=== PATIENT | male | born 1945 | race Caucasian/White ===

== ENCOUNTER 2020-02-09 13:38 | Emergency (ER) | payer OTHER ==
[~2020-02-09] VITALS: Ht 182.9 cm; Wt 99.8 kg
[2020-02-09] MEDS ORDERED: KETOROLAC TROMETHAMINE 60 MG/2 ML VIAL IM ONE (14:00)
[2020-02-09] MEDS ORDERED: HYDROCODONE/APAP 7.5MG-325MG 1 EA TAB PO ONE (14:00)
--- OUTSIDE RECORDS SUMMARY | 2020-02-09 14:06 | XMS REPORT | Continuity of Care Document ---
Author Author [facility] t Organization [facility] Address [address] [place] [address] Phone Unavailable Care Team Providers Care Ship'S Surveyor Name Role Phone Merrill Robledo Attphys VISIT, [facility] MED_ASST Attphys Unavailable VISIT, [facility] NURSE Attphys Unavailable Payers Payer Name Policy Type Policy Number Effective Date Expiration Date S ource Problems Condition Name Condition Details Condition Category Status Onset Date Resolution Date Last Treatment Date Treating Clinician Comments Source ABHAY COATESK Active 08/05/2019 [facility] Diagnosis Active 2019-08-05 00:00:00 2019-10-21 12:31:00 M radames Sterling Hypertensive disorder, systemic arterial (disorder) Hypertensive disorder, systemic arterial (disorder) Active Problem [facility]06[facility]2020 [facility] Problem Active 2 21:13:03 Sarah Sterling Chronic low back pain (disorder) Chronic low back pain (disorder) Active Problem 02/06/2020 [facility] Problem Active 2020-02-06 21:13:03 Sarah Sterling Disease of urinary tract (disorder) Disease of urinary tract (disorder) Active Problem 02/06/2020 [facility] Problem Active 2020-02-06 21:13:03 Gina Sterling Peripheral vascular disease (disorder) Peripheral vascular disease (disorder) Active Problem 02/06/2020 [facility] Problem Active 2020-02-06 21:13:03 Heladio Sterling Sleep apnea (finding) Slee p apnea (finding) Active Problem 02/06/2020 [facility] Problem Active 2020-02-06 21:13:03 [facility] Ben[facility] prostatic hypertroph with outflow obstruction ( disorder) 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) Active Problem 02/06/2020 [facility] Problem Active 2020-02-06 21: 13:03 [facility] Malignant tumor of urinary bladder (disorder) Malignant tumor of urinary bladder (disorder) Active Problem 02/06/2020 [facility] Problem Active 2020-02-06 21:13:03 [facility] Allergies, Adverse Reactions, Alerts Allergy Name Allergy Type Status Severity Reaction(s) Onset Date Inacti ve Date Treating Clinician Comments Source No Known Allergies DA Active U 2019-11-05 00:00:00 [facility] No Known Allergies DA Active U 2015-04-27 00:00:00 [facility] No Known Medication Allergies No Known Medication Allergies Active [facility] Social History Social Habit Start Date Stop Date Quantity Comments Source Social History 2019-10-21 19:06:38 2019-10-21 19:06:38 [facility] Medications Ordered Medication Name Filled Medication Name Start Date Stop Da te Current Medication? Ordering Clinician Indication Dosage Frequency Signature (SIG) Comments Components Source fentaNYL (ANES) 2019-10-21 20:07:00 No Route: IV, Drug form: INJ, ONCE, Stop date: 10/21/19 15:07:00 CDT radames Sterling lidocaine (ANES) 2019-10-21 20:07:00 No Route: IV, Drug form: INJ, ONCE, Stop date: 10/21/19 15:07:00 CDT radames Sterling propofol (ANES) 2019-10-21 20:06:00 No Route: IV, Drug form: INJ, ONCE, Stop date: 10/21/19 15:06:00 CDT radames Sterling ondansetron (CRISTINAS) 2019-10-21 20:06:00 No Route: IV, Drug form: INJ, ONCE, Stop date: 10/21/19 15:06:00 CDT radames Sterling ePHEDrine (CRISTINAS) 2019-10-21 19:55:00 No Route: IV, Drug form: INJ, ONCE, Stop date: 10/21/19 14:55:00 CDT [facility] glycopyrrolate (ANES) 2019-10-21 19:45:00 No Route: IV, Drug form: INJ, ONCE, Stop date: 10/21/19 14:45:00 CDT [facility] famotidine (ANES) 2019-10-21 19:45:00 No Route: IV, Drug form: INJ, ONCE, Stop date: 10/21/19 14:45:00 CDT [facility] dexamethasone (ANES) 2019-10-21 19:40:00 No Route: IV, Drug form: INJ, ONCE, Stop date: 10/21/19 14:40:00 CDT [facility] midazolam (ANES) 2019-10-21 19:30:00 No Route: IV, Drug form: SOLN, ONCE, Stop date: 10/21/19 14:30:00 CDT [facility] ciprofloxacin ([facility] 2 mg 2019-10-21 19:11:00 No Route: IV, Drug form: INJ, Start date: 10/21/19 14:11:00 CDT, Stop date: 10/21/19 15:11:00 CDT [facility] gemcitabine 1 gm + empty container 1 ea + Sodium Chloride 0. 9% IV 50 mL 2019-10-21 19:00:00 No Notes: Same as: Deandre palacios [facility] Lactated Ringers Injection IV (ANES) 1000 mL 2019-10-21 18:58:00 No Route: IV, Total Volume: 1,000, Start date: 10/21/19 13:58:00 CDT, Stop date: 10/21/19 14:58:00 CDT [facility] Sulfamethoxazole 800 MG / Trimethoprim 160 MG Oral Tablet [B actrim] 2019-10-21 18:46:00 Yes 1 tab, PO, BID, X 3 day, # 6 tab, 0 Refill(s), Pharmacy: [facility] [address] [facility] Hyoscyamine Sulfate 0.125 MG Sublingual Tablet [Levsin] 2019-10-21 18:46:00 Yes 0.125 mg = 1 ta b, SL, Q4H, PRN Bladder Spasm, # 40 tab, 1 Refill(s), Pharmacy: [facility] [address] Sarah Sterling tramadol hydrochloride 50 MG Oral Tablet 2019-10-21 18:46:00 Yes 50 mg = 1 tab, PO, Q8H, PRN Pain, X 10 day, # 20 tab, 0 Refill(s), Pharmacy: [facility] [address] [place] [address] Asher Calcium Chloride 0.0014 MEQ/ML / Potassi um Chloride 0.004 MEQ/ML / Sodium Chloride 0.103 MEQ/ML / Sodium Lactate 0.028 MEQ/ML Injectable Solution 2019-10-21 18:13:00 No 1,000 mL, Rate: 75 ml/hr, Infuse over: 13.3 hr, Route: IV, Dosing Weight 100 kg, Total Volume: 1,000, Start date: 10/21/19 13:13:00 CDT, Duration: 30 day, Stop date: 11/20/19 13:12:00 CDT, 2.27, m2 Sarah Asher clopidogrel 75 mg oral tablet 2019-07-29 15:23:00 Yes 75 mg = 1 tab, PO, Daily, # 90 tab, 0 Refill(s) Lyly Montero METOPROLOL ER 25MG TAB 2019-07-29 15:23:00 Yes METOPROLOL ER 25MG TAB, 1 tab, PO, Daily, Refill(s) 0 Gina Sterling AMLODIPINE 10MG TAB 2019-07-29 15:23:00 Yes AMLODIPINE 10MG TAB, 1 tab, PO, Daily, Refill(s) 0 Sarah miller tamsulosin 0.4 mg oral capsule 2019-07-29 15:23:00 Yes 0.4 mg = 1 cap, PO, Daily, # 30 cap, 0 Refill(s) Va morifazal Sterling Vital Signs Vital Name Observation Time Observation Value Comments Source Respitory Rate 2019-10-21 21:30:00 [facility] [place] Systolic (mm Hg) 2019-10-21 21:30:00 Hel[facility]io [facility] [place] Diastolic (mm Hg) 2019-10-21 21:30:00 [facility] [place] Respitory Rate 2019-10-21 20:45:00 [facility] [place] Systolic (mm Hg) 2019-10-21 20:45:00 Heladio [facility] [place] Diastolic (mm Hg) 2019-10-21 20:45:00 [facility] Respitory Rate 2019-10-21 20:30:00 [facility] [place] Systolic (mm Hg) 2019-10-21 20:30:00 Heladiochandan nicholsonl [place] Diastolic (mm Hg) 2019-10-21 20:30:00 [facility] [place] Heart Rate 2019-10-21 20:00:00 [facility] Heart Rate 2019-10-21 19:52:00 [facility] Heart Rate 2019-10-21 18:15:00 [facility] [place] Height 2019-10-14 21:11:00 182.88 cm [facility] [place] Weight 2019-10-14 21:11:00 [facility] [place] BMI Calculated 2019-10-14 21:11:00 [facility] Height 2019-08-05 18:29:00 182.88 cm [facility] Weight 2019-08-05 18:29:00 [facility] [place] BMI Calculated 2019-08-05 18:29:00 [facility] [place] Height 2019-07-29 15:16:00 182.88 cm [facility] Weight 2019-07-29 15:16:00 [facility] BMI Calculated 2019-07-29 15:16:00 [facility] [place] Procedures Procedure Date / Time Performed Performing Clinician Sour e Cystourethroscopy (separate procedure) 2019-08-05 20:20:00 [facility] Angioplasty 2015-05-27 00:00:00 [facility] Cholecystectomy [facility] Encounters Start Date/Time End Date/Time [facility] Source 2020-02-04 08:30:00 2020-02-04 08:30:00 Outpatient Victorino Robledo [facility] [id number] 2019-10-26 08:30:00 2019-10-26 23:59:59 Outpatient VISIT, NE D_ASST [facility] [id number] 2019-10-23 10:49:54 2019-10-24 23:59:59 Outpatient [facility] [id number] 2019-10-21 12:31:00 2019-10-21 16:21:00 Outpatient Victorino RobledoSE [facility] [id number] 2019-10-21 12:31:00 2019-10-21 12:31:00 Outpatient [facility] [facility] 2019-10-13 09:30:00 2019-10-13 23:59:59 Outpatient Victorino Robledo [facility] [id number] 2019-08-10 13:45:00 2019-08-10 13:45:00 Outpatient VISIT, GEORGE MONTALVO [facility] [id number] 2019-08-05 14:00:00 2019-08-05 23:59:59 Outpatient Victorino Robledo [facility] [id number] 2019-07-29 09:30:00 2019-07-29 23:59:59 Outpatient Victorino Robledo [facility] [id number] Results Test Description Test Time Test Comments Results Result Comments Source Novel Coronavirus 2018 [facility] 2019-11-06 16:28:00 Test Item Novel Coronavirus 2018 Inhouse (test code = COVNONPUI) Negative Negative Testing Criteria: Preprocedure ScreeningNovel Coronavirus 2018 [facility] 2019-11-06 16:28:00* Test Item Value Reference Range Interpretation Comments Novel Coronavirus 2018 Inhouse (test code = COVNONPUI) Negative Negative Testing Criteria: Preprocedure ScreeningBASIC METABOLIC [id number] 13:32:00* Test Item Value Reference Range Interpretation Comments SODIUM (test code = NA) 143 mmol/L 136-145 N POTASSIUM (test code = K) 4.4 mmol/L 3.5-5.1 N CHLORIDE (test code = CL) 111.0 mmol/L 98-107 H CARBON DIOXIDE (test code = CO2) 25.0 mmol/L 21-32 N ANION GAP (test code = GAP) 11.4 10-20 N GLUCOSE (test code = GLU) 98 mg/dL 74-106 N BLOOD UREA NITROGEN (test code = BUN) 20 mg/dL 7-18 H GLOMERULAR FILTRATION RATE (test code = GFR) > 60 mL/min >=60 Estimated GFR by using Modified MDRD formula.Chronic kidney disease is defined as either kidney damageor GFR <60 mL/min/1.73 m2 for >3 months. CREATININE (test code = CREAT) 0.90 mg/dL 0.7-1.3 N BUN/CREATININE RATIO (test code = BUN/CREA) 21.5 10-20 H CALCIUM (test code = CA) 9.2 mg/dL 8.5-10.1 N BASIC METABOLIC [id number] 13:21:00* Test Item Value Reference Range Interpretation Comments SODIUM (test code = NA) 143 mmol/L 136-145 N POTASSIUM (test code = K) 4.4 mmol/L 3.5-5.1 N CHLORIDE (test code = CL) 111.0 mmol/L 98-107 H CARBON DIOXIDE (test code = CO2) mmol/L 21-32 ANION GAP (test code = GAP) 10-20 GLUCOSE (test code = GLU) mg/dL 74-106 BLOOD UREA NITROGEN (test code = BUN) mg/dL 7-18 GLOMERULAR FILTRATION RATE (test code = GFR) mL/min >=60 CREATININE (test code = CREAT) mg/dL 0.7-1.3 BUN/CREATININE RATIO (test code = BUN/CREA) 10-20 CALCIUM (test code = CA) mg/dL 8.5-10.1 PROTHROMBIN [id number] 12:50:00* Test Item Value Reference Range Interpretation Comments PROTHROMBIN TIME PATIENT (test code = PTP) 11.1 seconds 9.0-14.0 N INTERNATIONAL NORMAL RATIO (test code = INR) 0.9 0.8-1.2 N The therapeutic range for oral anticoagulant therapy formost indications is an international normalized ratio (INR)of between 2.0 and 3.0. The recommended therapeutic INRrange for various clinical situations is listed below: Clinical Situation INR range Pulmonary e mbolism treatment (2.0-3.0)Venous thrombosis treatmentVenous thrombosis prophylaxis (high risk surgery)Prevention of systemic embolism from: Acute myocardial infarction Valvular heart disease Atrial fibrillation Mechanical prosthetic heart valves (2.5-3.5) IS PATIENT ON ANTICOAGULANTS? NTHROMBOPLASTIN TIME [id number] 12:50:00* Test Item Value Reference Range Interpretation Comments THROMBOPLASTIN TIME PARTIAL (test code = PTT) 32.9 seconds 23.0-37. 0 N IS PATIENT ON ANTICOAGULANTS? NCBC W/AUTO [id number] 12:46:00* Test Item Value Reference Range Interpretation Comments WHITE BLOOD CELL (test code = WBC) 8.3 K/mm3 4.5-12.5 N RED BLOOD CELL (test code = RBC) 4.29 mill/mm3 4.0-5.8 N HEMOGLOBIN (test code = HGB) 14.0 gram/dL 13.0-17.5 N HEMATOCRIT (test code = HCT) 41.1 % 42.0-52.0 L MEAN CELL VOLUME (test code = MCV) 95.8 fL 80-98 N MEAN CELL HGB (test code = MCH) 32.6 picogram 27.0-33.0 N MEAN CELL HGB CONCETRATION (test code = MCHC) 34.1 gram/dL 33.0-36. 0 N RED CELL DISTRIBUTION WIDTH (test code = RDW) 12.8 % 11.6-16. 2 N RED CELL DISTRIBUTION WIDTH SD (test code = RDW-SD) 43.8 fL 37 .0-51.0 N PLATELET COUNT (test code = PLT) 256 K/mm3 150-450 N MEAN PLATELET VOLUME (test code = MPV) 12.1 fL 6.7-11.0 H NEUTROPHIL % (test code = NT%) 54.4 % 39.0-69.0 N IMMATURE GRANULOCYTE % (test code = IG%) 1.0 % 0.0-5.0 N LYMPHOCYTE % (test code = LY%) 28.8 % 25.0-55.0 N MONOCYTE % (test code = MO%) 11.7 % 0.0-10.0 H EOSINOPHIL % (test code = EO%) 3.1 % 0.0-5.0 N BASOPHIL % (test code = BA%) 1.0 % 0.0-1.0 N NUCLEATED RBC % (test code = NRBC%) 0.0 % 0-0 N NEUTROPHIL # (test code = NT#) 4.50 K/mm3 1.8-7.7 N IMMATURE GRANULOCYTE # (test code = IG#) 0.08 x10 3/uL 0-0.03 H LYMPHOCYTE # (test code = LY#) 2.38 K/mm3 1.0-5.0 N MONOCYTE # (test code = MO#) 0.97 K/mm3 0-0.8 H EOSINOPHIL # (test code = EO#) 0.26 K/mm3 0.0-0.5 N BASOPHIL # (test code = BA#) 0.08 K/mm3 0.0-0.2 N NUCLEATED RBC # (test code = NRBC#) 0.00 K/mm3 0.0-0.1 N MANUAL DIFF REQUIRED (test code = MDIFF) NO - XR CHEST 2 [id number] 11:12:00 FAX: Jair Medina MD [phone] Constantia: O St: PRE FAX: Luis Onesimo Prabhakar Magui Davidson [phone] Name: BETZAIDA CAMPBELL [facility] : 1945 Age/S: 74/M [address] Unit #: [id number] Loc: [place] [address] Phys: Jair Duque MD Acct: [id number] Dis Date: Status: PRE [facility] [place] PHONE #: [phone] Exam Date: 11/05/2019 1058 FAX #: [phone] Reason: CHEST PAIN EXAMS: CPT CODE: [id number] XR CHEST 2 V 86472 HISTORY: Chest pain. COMPARISON: April 27, 2015. Location: [facility]. AP and lateral view of the chest: No acute infiltrates, effusion or congestion. Mild scarring. Cardiomegaly. DJD of the dorsal spine. IMPRESSION: No acute infiltrates, effusion or congestion. at 1112 Reported and signed by: Bryan Padilla M.D. CC: Jair Duque Ronald W DO Technologist: RT Raisa(R) Trnscrd Date/Time/By: 11/05/2019 (111) : By: Dereck H4 [facility] Print D/T: S: 11/05/2019 (5303) PAGE 1 Signed Report IMMUNOLOGY 2019-10-20 12:42:00Not Detected (10/20/19 7:42 AM)[facility] 2019-08-05 18:34:00Yellow *NA*(08/05/19 1:34 PM)[facility] 2019-08-05 18:34:00Clear *NA*(08/05/19 1:34 PM)[facility] 2019-08-05 18:34:00* Test Item Value Reference Range Interpretation Comments POC UA SG (test code = POC UA SG) 1.025 1 [facility] [id number] 18:34:00* Test Item Value Reference Range Interpretation Comments POC UA pH (test code = POC UA pH) 6.5 1 5.0-8.0 [facility] [id number] 18:34:00Negative *NA*(08/05/19 1:34 PM) [facility] [id number] 18:34:00Large *ABN*(08/05/19 1:34 PM) [facility] [id number] 18:34:002.0[facility] [id number] 18:34:00Negative *NA*(08/05/19 1:34 PM)[facility] [id number] 18:34:00Negative *NA*(08/05/19 1:34 PM)[facility] [id number] 15:29:00Slightly Cloudy *NA*(07/29/19 9:29 AM)[facility] [id number] 15:29:00* Test Item Value Reference Range Interpretation Comments POC UA SG (test code = POC UA SG) 1.025 1 [facility] [id number] 15:29:00* Test Item Value Reference Range Interpretation Comments POC UA pH (test code = POC UA pH) 7.0 1 5.0-8.0 [facility] [id number] 15:29:00Negative *NA*(07/29/19 9:29 AM) [facility] [id number] 15:29:00Large *ABN*(07/29/19 9:29 AM) [facility] [id number] 15:29:002.0[facility] [id number] 15:29:00Negative *NA*(07/29/19 9:29 AM)[facility] [id number] 15:29:00Negative *NA*(07/29/19 9:29 AM)[facility]
--- OUTSIDE RECORDS SUMMARY | 2020-02-09 14:06 | XMS REPORT | Continuity of Care Document ---
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 Name Role Phone [employer] Unavailable Un available Problems Problem Status Onset Date Classification Date Reported Comments Source UNK Active 0 08/05/2019 [facility] Hypertensive disorder, systemic arterial (disorder) Active Problem 02/06/2020 [facility] Chronic low back pain (disorder) Active Problem 04/2020 [facility] Disease of urinary tract (disorder) Active Problem 04/2020 [facility] Peripheral vascular disease (disorder) Active Problem 04/2020 [facility] Sleep apnea (finding) Active Problem 02/06/2020 [facility] 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) Active Prob tr 02/06/[facility] Malignant tumor of urinary bladder (disorder) Active Problem 02/06/2020 [facility] Medications Medication Details Route Status Patient Instructions Ordering Provider Order Date Source fentaNYL (ANES) Route: IV, Castillo g form: INJ, ONCE, Stop date: 10/21/19 15:07:00 CDT Inactive 10/21/2019 [facility] lidocaine (ANES) Route: IV, Dr ug form: INJ, ONCE, Stop date: 10/21/19 15:07:00 CDT Inactive 10/21/2019 [facility] propofol (ANES) Route: IV, Castillo g form: INJ, ONCE, Stop date: 10/21/19 15:06:00 CDT Inactive 10/21/2019 [facility] ondansetron (ANES) Route: IV, Drug form: INJ, ONCE, Stop date: 10/21/19 15:06:00 CDT Inactive 10/21/2019 [facility] ePHEDrine (ANES) Route: IV, Dr ug form: INJ, ONCE, Stop date: 10/21/19 14:55:00 CDT Inactive 10/21/2019 [facility] glycopyrrolate (ANES) Route: I V, Drug form: INJ, ONCE, Stop date: 10/21/19 14:45:00 CDT Inactive 10/21/2019 [facility] famotidine (ANES) Route: IV, D rug form: INJ, ONCE, Stop date: 10/21/19 14:45:00 CDT Inactive 10/21/2019 [facility] dexamethasone (ANES) Route: IV , Drug form: INJ, ONCE, Stop date: 10/21/19 14:40:00 CDT Inactive 10/21/2019 [facility] midazolam (ANES) Route: IV, Dr ug form: SOLN, ONCE, Stop date: 10/21/19 14:30:00 CDT Inactive 10/21/2019 [facility] ciprofloxacin (ANES) 2 mg Rout e: IV, Drug form: INJ, Start date: 10/21/19 14:11:00 CDT, Stop date: 10/21/19 15:11:00 CDT Inactive 10/21/2019 [facility] gemcitabine 1 gm + empty container 1 ea + Sodium Chloride 0.9% IV 50 mL Notes: Same as: Gemzar Inactive 10/21/2019 [facility] Lactated Ringers Injection IV (ANES) 1000 mL Route: IV, Total Volume: 1,000, Start date: 10/21/19 13:58:00 CDT, Stop date: 10/21/19 14:58:00 CDT Inactive 10/21/2019 [facility] Sulfamethoxazole 800 MG / Trimethoprim 1 60 MG Oral Tablet [Bactrim] 1 tab, PO, BID, X 3 day, # 6 tab, 0 Refi ll(s), Pharmacy: [facility] Active 10/21/2019 [facility] Hyoscyamine Sulfate 0.125 MG Sublingual Tablet [Levsin ] 0.125 mg = 1 tab, SL, Q4H, PRN Bladder Spasm, # 40 tab, 1 Refill(s), Pharmacy: [facility] Active 10/21/2019 [facility] tramadol hydrochloride 50 MG Oral Tablet 50 mg = 1 tab, PO, Q8H, PRN Pain, X 10 day, # 20 tab, 0 Refill(s), Pharmacy: [facility] Active 10/21/2019 [facility] Calcium Chloride 0.0014 MEQ/ML / Potassi um Chloride 0.004 MEQ/ML / Sodium Chloride 0.103 MEQ/ML / Sodium Lactate 0.028 MEQ/ML Injectable Solution 1,000 mL, Rate: 75 ml/hr, Infuse over: 1 3.3 hr, Route: IV, Dosing Weight 100 kg, Total Volume: 1,000, Start date: 10/21/19 13:13:00 CDT, Duration: 30 day, Stop date: 11/20/19 13:12:00 CDT, 2.27, m2 Inactive 10/21/2019 [facility] clopidogrel 75 mg oral tablet 75 mg = 1 tab, PO, Daily, # 90 tab, 0 Refill(s) Active 07/29/2019 [facility] METOPROLOL ER 25MG TAB METOPRO LOL ER 25MG TAB, 1 tab, PO, Daily, Refill(s) 0 Active 07/29/2019 [facility] AMLODIPINE 10MG TAB AMLODIPINE 10MG TAB, 1 tab, PO, Daily, Refill(s) 0 Active 07/29/2019 [facility] tamsulosin 0.4 mg oral capsule 0.4 mg = 1 cap, PO, Daily, # 30 cap, 0 Refill(s) Active 07/29/2019 [facility] Allergies, Adverse Reactions, Alerts Substance Category Reaction Severity Reaction type Status Date Reported Comments Source No Known Medication Allergies Assertion Drug aller gy [facility] Immunizations No Data Provided for This Section Results Order Name Results Value Reference Range Date Interpretation Comments Source IMMUNOLOGY Coronavirus (COVID-19) NA A Not Detected (10/20/19 7:42 AM) Not Detected 10/20/2019 [facility] URINE AND STOOL POC UA Color Yellow *NA* (08/05/19 1:34 PM) Yellow 08/05/2019 [facility] URINE AND STOOL POC UA Turbidity Clear *NA* (08/05/19 1:34 PM) Clear 08/05/2019 [facility] URINE AND STOOL POC UA SG 1.025 <=1.030 08/05/2019 [facility] URINE AND STOOL POC UA pH 6.5 5.0 - 8.0 08/05/2019 [facility] URINE AND STOOL POC UA Prot 100 mg/dL Negative mg/dL 08/05/2019 [facility] URINE AND STOOL POC UA Glu Negative mg/dL Negative mg/dL 08/05/2019 [facility] URINE AND STOOL POC UA Ket Negative mg/dL Negative mg/dL 08/05/2019 [facility] URINE AND STOOL POC UA Bili Negative *NA* (08/05/19 1:34 PM) Negative 08/05/2019 [facility] URINE AND STOOL POC UA Bld Large *ABN* (08/05/19 1:34 PM) Negative 08/05/2019 [facility] URINE AND STOOL POC UA Uro 2.0 0.1 - 1.0 08/05/2019 [facility] URINE AND STOOL POC UA Nit Negative *NA* (08/05/19 1:34 PM) Negative 08/05/2019 [facility] URINE AND STOOL POC UA LeukEst Negative *NA* (08/05/19 1:34 PM) Negative 08/05/2019 [facility] URINE AND STOOL POC UA Color Dark yellow 07/29/2019 [facility] URINE AND STOOL POC UA Turbidity Slightly Cloudy *NA* (07/29/19 9:29 AM) Clear 07/29/2019 [facility] URINE AND STOOL POC UA SG 1.025 <=1.030 07/29/2019 [facility] URINE AND STOOL POC UA pH 7.0 5.0 - 8.0 07/29/2019 [facility] URINE AND STOOL POC UA Prot 100 mg/dL Negative mg/dL 07/29/2019 [facility] URINE AND STOOL POC UA Glu Negative mg/dL Negative mg/dL 07/29/2019 [facility] URINE AND STOOL POC UA Ket Negative mg/dL Negative mg/dL 07/29/2019 [facility] URINE AND STOOL POC UA Bili Negative *NA* (07/29/19 9:29 AM) Negative 07/29/2019 [facility] URINE AND STOOL POC UA Bld Large *ABN* (07/29/19 9:29 AM) Negative 07/29/2019 [facility] URINE AND STOOL POC UA Uro 2.0 0.1 - 1.0 07/29/2019 [facility] URINE AND STOOL POC UA Nit Negative *NA* (07/29/19 9:29 AM) Negative 07/29/2019 [facility] URINE AND STOOL POC UA LeukEst Negative *NA* (07/29/19 9:29 AM) Negative 07/29/2019 [facility] Pathology Reports No Data Provided for This Section Diagnostic Reports Report Value Date Source Chest 2 views DX PROCEDURE INF ORMATION: Exam: XR Chest, 2 Views Exam date and time: 10/20/2019 8:11 AM Age: 74 years old Clinical indication: Pre-operative exam; Cardiovascular screening and respiratory screening exam; Additional info: Coughing/preop exam TECHNIQUE: Imaging protocol: XR of the chest Views: 2 views. PA and Lateral COMPARISON: No relevant prior studies available. FINDINGS: Lungs: There are normal lung volumes without consolidation or interstitial oppacities. Pleural space: Unremarkable. No pleural effusion. No pneumothorax. Heart/Mediastinum: The heart size is normal. Aortic calcifications. The mediastinal contour is normal. The trachea is midline. Bones/joints: No acute abnormality seen. IMPRESSION: No acute cardiopulmonary abnormality. Yanick Taylor MD On 10/20/2019 08:24:40; [id number] 10/20/2019 [facility] Consultation Notes No Data Provided for This Section Discharge Summaries No Data Provided for This Section History and Physicals No Data Provided for This Section Vital Signs Vital Sign Value Date Comments Source Respitory Rate 18 10/21/2019 [facility] Systolic (mm Hg) 141 10/21/2019 [facility] Diastolic (mm Hg) 66 10/21/2019 [facility] Respitory Rate 18 10/21/2019 [facility] Systolic (mm Hg) 138 10/21/2019 [facility] Diastolic (mm Hg) 64 10/21/2019 [facility] Respitory Rate 15 10/21/2019 [facility] Systolic (mm Hg) 145 10/21/2019 [facility] Diastolic (mm Hg) 60 10/21/2019 [facility] Heart Rate 57 10/21/2019 [facility] Heart Rate 58 10/21/2019 [facility] Heart Rate 81 10/21/2019 [facility] Height 182.88 cm 10/14/2019 [facility] Weight 100 10/14/2019 [facility] BMI Calculated 29.9 10/14/2019 [facility] Height 182.88 cm 08/05/2019 [facility] Weight 100.938 08/05/2019 [facility] BMI Calculated 30.18 08/05/2019 [facility] Height 182.88 cm 07/29/2019 [facility] Weight 101.903 07/29/2019 [facility] BMI Calculated 30.47 07/29/2019 [facility] Encounters Location Location Details Encounter Type Encounter Number Reason For Visit Attending Provider ADM Date DC Date Status Source Outpatient [id number] Victorino Robledo 07/29/2019 [facility] [id number] Victorino Robledo 07/29/2019 07/30/2019 [facility] Outpatient [id number] Victorino Robledo 08/05/2019 [facility] [id number] MED_ASST VISIT 08/05/2019 Active [facility] Outpatient [id number] Victorino Robledo 08/05/2019 08/06/2019 [facility] Outpatient [id number] NURSE VISIT 08/10/2019 Active [facility] Ambulatory Pre-Reg [id number] NURSE VISIT 08/10/2019 08/10/2019 [facility] Outpatient [id number] NURSE VISIT 10/13/2019 Active [facility] Outpatient [id number] Victorino Robledo 10/13/2019 10/14/2019 [facility] Day Surgery [id number] Victorino Robledo 10/21/2019 10/21/2019 [facility] Phone Message [id number] 10/23/1910/25/2019 [facility] Outpatient [id number] MED_ASST VISIT 10/26/2019 Active [facility] Outpatient [id number] MED_ASST VISIT 10/26/2019 10/27/2019 [facility] Outpatient [id number] Victorino Robledo 11/03/2019 Active [facility] Outpatient [id number] MED_ASST VISIT 11/03/2019 Active [facility] Outpatient [id number] Victorino Robledo 02/04/2020 Active [facility] Outpatient [id number] MED_ASST VISIT 02/04/2020 [facility] [id number] Victorino Robledo 02/04/2020 02/04/2020 [facility] Procedures Procedure Code Date Perfomer Comments Source Cystourethroscopy (separate procedure) 05279 08/05/2019 [facility] Angioplasty [id number] 05/27/2015 [facility] Cholecystectomy [id number] [facility] Assessment and Plan No Data Provided for This Section Plan of Care No Data Provided for This Section Social History Social History Date Source Social History TypeResponse Alcohol Current, Frequency: 1-2 times per month. Substance Abuse Use: None. Smoking Status Current some day smoker; Type: Cigarettes; Ready to change: No; Concerns about tobacco use in household: No; Exposure to Tobacco Smoke None; Cigarette Smoking Last 365 Days Yes; Reg Smoking Cessation Counseling No entered on: 11/03/19 10/21/2019 [facility] Social History TypeResponse Alcohol Current, Frequency: 1-2 times per month. Substance Abuse Use: None. Smoking Status Current some day smoker; Type: Cigarettes; Ready to change: No; Concerns about tobacco use in household: No; Exposure to Tobacco Smoke None; Cigarette Smoking Last 365 Days Yes; Reg Smoking Cessation Counseling No entered on: 10/21/19 10/21/2019 [facility] Family History No Data Provided for This Section Advance Directives No Data Provided for This Section Functional Status No Data Provided for This Section
--- NOTE | 2020-02-09 14:18 | Emergency Department Note ---
History of Present Illnes History of Present Illness Chief Complaint: Back Pain History of Present Illness This is a 74 year old male lower back pain ongoing 3 weeks not getting better with seeing a chiropractor, started while hitting a drive playing golf. pt couldn't see pcp. ambulatory steady gait. aaox4. appears uncomfortable. 2 months ago dx bladder cancer and had tumor removed and did not need radiation or chemo. one month ago dx with cad and stent placement. Historian: Patient, Family Member Arrival Mode: Car Child Nutrition Director Required: No Onset (how long ago): week(s) (3) Location: back Quality: pain Radiation: Reports non-radiation Severity: moderate Onset quality: gradual Timing of current episode: constant Progression: waxing and waning Chronicity: new Context: Denies recent illness Relieving factors: none Associated symptoms: Reports denies other symptoms Past Medical/Family History Physician Review I have reviewed the patient's past medical and family history. Any updates have been documented here. Past Medical History Recent Fever: No Clinical Suspicion of Infectio: No New/Unexplained Change in Ment: No Past Medical History: Hypertension, CAD, Cancer Other Medical History: bladder cancer 11/2019 (tumor removed and no chemo/radiation needed) Past Surgical History: PCI Social History Smoking Cessation: Former smoker Counseling Performed: No Alcohol Use: None Any Illegal Drug Use: No TB Exposure/Symptoms: No Physically hurt or threatened: No Family History Family history of heart diseas: No Other Any Pre-Existing Lines (PICC,: No Review of Systems Review of Systems Constitutional: Reports no symptoms EENTM: Reports no symptoms Cardiovascular: Reports no symptoms Respiratory: Reports no symptoms Gastrointestinal: Reports no symptoms Genitourinary: Reports no symptoms Musculoskeletal: Reports as per HPI, Reports back pain Integumentary: Reports no symptoms Neurological: Reports no symptoms Psychological: Reports no symptoms Endocrine: Reports no symptoms Hematological/Lymphatic: Reports no symptoms Physical Exam Related Data Allergies: Coded Allergies: No Known Allergies (Unverified , 02/09/20) Triage Vital Signs Vital Signs Date Time Temp Pulse Resp B/P (MAP) Pulse Ox O2 Delivery O2 Flow Rate FiO2 02/09/20 13:45 97.3 69 16 117/87 100 Room Air Vital signs reviewed: Yes Physical Exam CONSTITUTIONAL Constitutional: Present well-developed, Present well-nourished HENT HENT: Present normocephalic, Present atraumatic, Present oropharynx clear/moist, Present nose normal HENT L/R: Present left ext ear normal, Present right ext ear normal EYES Eyes: Reports PERRL, Reports conjunctivae normal NECK Neck: Present ROM normal PULMONARY Pulmonary: Present effort normal, Present breath sounds normal CARDIOVASCULAR Cardiovascular: Present regular rhythm, Present heart sounds normal, Present capillary refill normal, Present normal rate GASTROINTESTINAL Abdominal: Present soft, Present nontender, Present bowel sounds normal GENITOURINARY Genitourinary: Present exam deferred SKIN Skin: Present warm, Present dry MUSCULOSKELETAL Musculoskeletal: Present ROM normal, Present tenderness (upper lumbar bilateral paraspinal muscle spasm/tenderness, no midline tenderness, negative SLR, normal neuro, nl DTR's) NEUROLOGICAL Neurological: Present alert, Present oriented x 3, Present DTRs normal, Present no gross motor or sensory deficits; Absent cranial nerve deficit, Absent sensory deficit, Absent abnormal DTRs, Absent abnormal gait, Absent weakness PSYCHOLOGICAL Psychological: Present mood/affect normal, Present judgement normal Assessment & Plan Medical Decision Making MDM pt already had normal xrays done by Ortho for evaluation of hip pain about 6 weeks ago, told he needs MRI but hasn't scheduled. Normal neuro exam and no signs of cord compression, no radiculopathy - I explained that there is no emergent reason for MRI here. Will give pain meds, dc home Reassessment Reassessment DC home, Tramadol, Robaxin, F/U PCP and Ortho, ER warnings Assessment & Plan Final Impression: (1) Muscle strain Depart Disposition: HOME, SELF-CARE Last Vital Signs Date Time Temp Pulse Resp B/P (MAP) Pulse Ox O2 Delivery O2 Flow Rate FiO2 02/09/20 13:45 97.3 69 16 117/87 100 Room Air Medications in the ED Ketorolac Tromethamine 60 mg ONCE ONCE IM ; Start 02/09/20 at 14:00; Stop 02/09/20 at 14:01; Status DC Acetaminophen/ Hydrocodone Bitart 1 ea NOW ONCE PO ; Start 02/09/20 at 14:00; Stop 02/09/20 at 14:01; Status DC ANGELI DRUMMOND MD Feb 09, 2020 14:18
== END 2020-02-09 14:29 | disposition home or self-care (01) ==
LOC: ER 13:54
DX: S39.012A Strain of muscle, fascia and tendon of lower back, initial encounter (principal); Y93.53 Activity, golf; I10 Essential (primary) hypertension; I25.10 Atherosclerotic heart disease of native coronary artery without angina pectoris; Z85.51 Personal history of malignant neoplasm of bladder
CPT/HCPCS: 99283; J1885